=== PATIENT | female | born 1990 | race Hispanic/Latino ===

== ENCOUNTER 2019-08-21 19:08 | Emergency (ER) | payer BC ==
[~2019-08-21] VITALS: Ht 152.4 cm; Wt 61.2 kg
[~2019-08-21 19:08] MED LIST: PAROXETINE HCL20 MG PO; XANAX0.5 MG PO
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
[2019-08-21 20:04] LABS: BASOPHILS % 0.2 % (0.0-1.0); EOSINOPHILS # (AUTO) 0.2 (0.0-0.4); EOSINOPHILS % 1.9 % (0.0-6.0); HEMATOCRIT 38.9 % (34.2-44.1); HEMOGLOBIN 12.4 g/dL (12.0-16.0); LYMPHOCYTES # (AUTO) 2.2 (1.0-3.2); LYMPHOCYTES % 23.8 % (18.0-39.1); MEAN CORPUSCULAR HEMOGLOBIN 28.8 pg (28-32); MEAN CORPUSCULAR HGB CONC 31.9 g/dL (31-35); MEAN CORPUSCULAR VOLUME 90.5 fL (81-99); MONOCYTES # (AUTO) 0.5 (0.2-0.8); MONOCYTES % 5.9 % (4.4-11.3); NEUTROPHILS # (AUTO) 6.2 (2.1-6.9); PLATELET COUNT 276 x10e3/uL (140-360); RED CELL DISTRIBUTION WIDTH 14.3 % (11.7-14.4)
[2019-08-21 20:21] LABS: ALANINE AMINOTRANSFERASE 20 IU/L (0-55); ALBUMIN 3.9 g/dL (3.5-5.0); ALBUMIN/GLOBULIN RATIO 1.1 (0.8-2.0); ALKALINE PHOSPHATASE 66 IU/L (40-150); ANION GAP 14.9 mmol/L (8-16); BLOOD UREA NITROGEN 9 mg/dL (7-26); BUN/CREATININE RATIO 12 (6-25); CALCIUM 9.3 mg/dL (8.4-10.2); CARBON DIOXIDE 22 mmol/L (22-29); CHLORIDE 106 mmol/L (98-107); CREATININE, SERUM 0.74 mg/dL (0.57-1.11); EST GLOMERULAR FILTRATION RATE > 60 ML/MIN (60-); GLUCOSE 99 mg/dL (74-118); POTASSIUM 4.9 mmol/L (3.5-5.1); SODIUM 138 mmol/L (136-145)
[2019-08-21 20:33] LABS: CREATINE KINASE 96 IU/L (29-168)
[2019-08-21 20:34] LABS: SALICYLATE < 5.0 mg/dL (0-30)
[2019-08-21 21:01] LABS: AMPHETAMINES SCREEN,URINE NEGATIVE (NEGATIVE); CLARITY,URINE CLEAR (CLEAR); COLOR,URINE YELLOW (YELLOW); KETONES,URINE NEGATIVE (NEGATIVE); LEUKOCYTE ESTERASE ,URINE NEGATIVE (NEGATIVE); NITRITE,URINE NEGATIVE (NEGATIVE); PHENCYCLIDINE SCREEN,URINE NEGATIVE (NEGATIVE); PROTEIN,URINE DIPSTICK NEGATIVE (NEGATIVE)
--- NOTE | 2019-08-21 21:01 | Diagnostic Imaging Report ---
Exam: Left hand 3 views History: Pain Comparison: None. Findings: No fracture or malalignment. Joint spaces preserved. No abnormal soft tissue calcification or soft tissue defect. Impression: No acute osseous abnormality Signed by: Dr. Fili Parsons M.D. on 08/21/2019 8:57 PM
[2019-08-21 21:02] LABS: BENZODIAZEPINES SCREEN,URINE NEGATIVE (NEGATIVE); BILIRUBIN,URINE NEGATIVE (NEGATIVE); URINE UROBILINOGEN 0.2 mg/dL (0.2 - 1)
[2019-08-21 21:03] LABS: PREGNANCY TEST, URINE NEGATIVE (NEGATIVE)
[2019-08-21 21:11] LABS: BACTERIA,URINE MODERATE /HPF; EPITHELIAL CELLS,URINE MODERATE /LPF
--- NOTE | 2019-08-21 21:44 | NUR ---
MAT CALLED AT THIS TIME, PT PLACED IN QUEUE, PENDING AVAILABILITY FOR GUM REMOVER.
--- NOTE | 2019-08-21 22:59 | NUR ---
MAST LOAN INTERVIEWER, LINDA WILSON ARRIVED; PROVIDED WITH SUMMARY REPORT FOR CONTINUITY OF CARE; PENDING ASSESSMENT.
--- NOTE | 2019-08-21 23:11 | NUR ---
MAT PROPOSAL ENGINEER AT BEDSIDE FOR EVAL.
--- NOTE | 2019-08-22 00:44 | NUR ---
Per MAT Director Of Recruiting zaki, pt is to f/u OPT with provided resources, pt verbalized understanding; ED MD aware and agrees with POC.
[2019-08-22 01:57] VITALS: BP 131/86
== END 2019-08-22 00:55 | disposition home or self-care (01) ==
LOC: ER 19:08
DX: R45.851 Suicidal ideations (principal); S60.222A Contusion of left hand, initial encounter; W22.09XA Striking against other stationary object, initial encounter; F32.9 Major depressive disorder, single episode, unspecified; F41.9 Anxiety disorder, unspecified; N80.9 Endometriosis, unspecified
CPT/HCPCS: 36415; 80053; 80307; 80320; 80329; 81001; 81025; 82550; 85025; 99283

== ENCOUNTER → 2021-12-02 | Outpatient (CLI) | payer BC | LOC: US 12:31 | PROVIDERS: ATTEND Family Medicine | DX: R14.0 Abdominal distension (gaseous) (principal); R10.13 Epigastric pain | CPT/HCPCS: 76700 ==

== ENCOUNTER 2023-01-13 03:28 | Emergency (ER) | payer BC ==
[~2023-01-13] VITALS: Ht 152.4 cm; Wt 61.2 kg
[2023-01-13 03:55] LABS: BASOPHILS # (AUTO) 0.1 (0.0-0.1); BASOPHILS % 0.6 % (0.0-1.0); EOSINOPHILS # (AUTO) 0.4 (0.0-0.4); EOSINOPHILS % 4.1 % (0.0-6.0); HEMATOCRIT 42.7 % (34.2-44.1); HEMOGLOBIN 14.2 g/dL (12.0-16.0); LYMPHOCYTES # (AUTO) 3.2 (1.0-3.2); LYMPHOCYTES % 30.2 % (18.0-39.1); MEAN CORPUSCULAR HEMOGLOBIN 28.6 pg (28-32); MEAN CORPUSCULAR HGB CONC 33.3 g/dL (31-35); MEAN CORPUSCULAR VOLUME 85.9 fL (81-99); MONOCYTES # (AUTO) 0.5 (0.2-0.8); MONOCYTES % 4.7 % (4.4-11.3); NEUTROPHILS # (AUTO) 6.5 (2.1-6.9); NEUTROPHILS % 60.1 % (38.7-80.0); PLATELET COUNT 266 x10e3/uL (140-360); RED BLOOD COUNT 4.97 x10e6/uL (3.6-5.1); RED CELL DISTRIBUTION WIDTH 17.2 % (11.7-14.4); WHITE BLOOD COUNT 10.73 x10e3/uL (4.8-10.8)
[2023-01-13 04:00] LABS: AMPHETAMINES SCREEN,URINE NEGATIVE (NEGATIVE); BENZODIAZEPINES SCREEN,URINE NEGATIVE (NEGATIVE); PHENCYCLIDINE SCREEN,URINE NEGATIVE (NEGATIVE)
[2023-01-13 04:13] LABS: ALBUMIN 4.5 g/dL (3.5-5.0); ALBUMIN/GLOBULIN RATIO 1.3 (0.8-2.0); ANION GAP 13.5 mmol/L (8-16); CALCIUM 9.3 mg/dL (8.4-10.2); CREATININE, SERUM 1.21 mg/dL (0.57-1.11); POTASSIUM 3.5 mmol/L (3.5-5.1)
[2023-01-13 04:15] LABS: SALICYLATE < 5.0 mg/dL (0-30)
[2023-01-13 09:17] VITALS: O2SAT 100
== END 2023-01-13 11:20 ==
LOC: ER 03:30
DX: R45.851 Suicidal ideations (principal); F41.9 Anxiety disorder, unspecified; F32.A Depression, unspecified; I34.1 Nonrheumatic mitral (valve) prolapse; N80.9 Endometriosis, unspecified; Z20.822 Contact with and (suspected) exposure to COVID-19
CPT/HCPCS: 36415; 80053; 80307; 80320; 80329 ×2; 81025; 85025; 99284; U0002

== ENCOUNTER 2024-04-04 12:07 | Emergency (ER) | payer SELFPAY ==
[~2024-04-04] VITALS: Ht 152.4 cm; Wt 77.1 kg
[2024-04-04 12:25] VITALS: TEMP 98.6
[2024-04-04] MEDS: ALBUTEROL/IPRATROPIUM 3 ML NEB NEB ONE (12:49)
[2024-04-04 12:50] VITALS: PULSE 74; RESP 20
[2024-04-04 12:59] LABS: CORONAVIRUS COVID-19 AG NEGATIVE (NEGATIVE); INFLUENZA A AG NEGATIVE (NEGATIVE); INFLUENZA B AG NEGATIVE (NEGATIVE)
[2024-04-04] MEDS ORDERED: MUCINEX DM ER1 EACH PO (14:06)
[2024-04-04 14:21] VITALS: PULSE 97; RESP 18; O2SAT 100
== END 2024-04-04 14:21 | disposition home or self-care (01) ==
LOC: ER 14:03
DX: R05.9 Cough, unspecified (principal); J40 Bronchitis, not specified as acute or chronic; F41.9 Anxiety disorder, unspecified; F32.A Depression, unspecified; I34.1 Nonrheumatic mitral (valve) prolapse; Z11.52 Encounter for screening for COVID-19
CPT/HCPCS: 71046; 99283